=== PATIENT | male | born 1950 | race Caucasian/White ===

== ENCOUNTER 2018-11-14 15:13 | Outpatient (CLI) | payer MEDICARE, OTHER ==
--- NOTE | 2018-11-14 16:11 | MRI ---
MRI Lower Ext Jt Rt WO Con HISTORY: Medial knee pain after squatting. COMPARISON: None. FINDINGS: The anterior as well as posterior cruciate ligaments appear intact. The lateral meniscus is normal in shape and appearance. There is a large centrally displaced flap typ e tear present, it is possible this is a bucket-handle tear although I would favor that this represents a displaced flap tear without a definite connection to the anterior horn although it direc tly abuts the anterior horn. The medial and lateral collateral ligaments and iliotibial band are normal in appearance. There is articular cartilage fissuring of the medial facet of the patella the medial and lateral jaquez llar retinacula and quadriceps and patellar tendons are normal. There is a joint effusion present with a small Meng's cyst. IMPRESSION: 1. Medial meniscus tear with a large centrally displaced flap fragment. This is felt to represent a d isplaced flap tear it could conceivably be a bucket-handle type tear. 2. Articular cartilage fissuring of the medial facet of the patella.
== END 2018-11-14 15:14 | disposition home or self-care (01) ==
LOC: SCSMRI 15:13
PROVIDERS: ATTEND Orthopaedic Surgery
DX: M23.91 Unspecified internal derangement of right knee (principal)

== ENCOUNTER 2018-11-21 06:04 | Day surgery (SDC) | payer MEDICARE, OTHER ==
[2018-11-20 10:13] VITALS: BMI 24.4
[2018-11-21] MEDS ORDERED: Fentanyl 100 MCG/2 ML VIAL ONE ×2 (06:13→06:43)
[2018-11-21 06:42] LABS: #Basophils 0.1 thou/uL (0.0-0.2); #Eosinphils 0.3 thou/uL (0.0-0.7); #Lymphocytes 2.1 thou/uL (1.20-3.40); #Monocytes 0.6 thou/uL (0.11-0.59); #Neutrophils 2.3 thou/uL (1.40-6.50); %Basophils 1.1 % (0.0-1.0); %Eosinophils 6.4 % (0.0-10.0); %Lymphocytes 39.1 % (21.0-51.0); %Monocytes 10.4 % (0.0-10.0); Hemoglobin 13.5 g/dL (14.0-18.0); Mean Corpuscular HGB CONC 34.6 g/dL (32.0-36.0); Mean Corpuscular Hemoglobin 33.8 pg (27.0-31.0); Mean Corpuscular Volume 97.7 fL (78.0-98.0); Mean Platelet Volume 6.4 fL (7.4-10.4); Platelet Count 314 thou/uL (130-400); RBC Distribution Width 11.6 % (11.5-14.5); Red Blood Cell (RBC) Count 3.99 mill/uL (4.70-6.10); White Blood Cell (WBC) Count 5.4 thou/uL (4.8-10.8)
[2018-11-21] MEDS ORDERED: Midazolam HCl 2 mg/2 ml Vial ONE (06:43)
[2018-11-21] MEDS ORDERED: PROPOFOL 20 ML ONE (06:44)
[2018-11-21 07:00] LABS: Anion Gap 19 mmol/L (10-20); BUN (Urea Nitrogen) 11 mg/dL (8.4-25.7); Calc. Creatinine Clearance 83 mL/min (70-130); Calcium 10.4 mg/dL (7.8-10.44); Carbon Dioxide 20 mmol/L (23-31); Chloride 102 mmol/L (98-107); Estimated GFR-MDRD 73; Glucose 152 mg/dL (80-115); Potassium 5.2 mmol/L (3.5-5.1); Sodium 136 mmol/L (136-145)
[2018-11-21] MEDS ORDERED: Promethazine HCl 25 MG/ML VIAL ONE (09:09)
--- NOTE | 2018-11-21 10:19 | OP ---
DATE OF PROCEDURE: 11/21/2018 PREOPERATIVE DIAGNOSIS: Right knee bucket-handle medial meniscus tear. POSTOPERATIVE DIAGNOSIS: Right knee bucket-handle medial meniscus tear. PROCEDURES PERFORMED: Right knee arthroscopy with partial medial meniscectomy. LEAD ATHLETE: None. BLOOD LOSS: Minimal. COMPLICATIONS: None. ANESTHESIA: The patient did have a general anesthetic as well as a local knee block. DISPOSITION: He went to recovery room in stable condition. INDICATIONS: This 67-year-old male comes in after a couple months of increasing pain and inability to fully extend the knee. An MRI scan showed him to have some early arthritic change in the medial compartment as well as a large displaced tear of the medial meniscus. At this time, he opted to have surgery. DESCRIPTION OF PROCEDURE: After all appropriate consent forms were explained and signed, he was taken to the operating room and at this time was given general anesthetic. Once the level of anesthesia was appropriate, tourniquet was placed on the right thigh. Leg was placed in arthroscopic leg hines. The limb was then prepped and draped in standard surgical fashion. Limb was exsanguinated and tourniquet was taken up to 300 mmHg. Inferolateral portal was established. Scope was placed into the knee joint. A needle localization technique was then used to make a medial working portal. Diagnostic arthroscopy commenced in the notch. The displaced medial meniscus was found in the notch. This was replaced back into its appropriate position manually. ACL and PCL were found to be intact. The medial compartment was evaluated. 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 There were no grade 4 lesions noted. Tibial plateau was overall in good condition. The meniscus itself had significant degenerative changes with intrameniscal tearing and striations that were noted in the body portion of the tear. There was also a white discoloration and the meniscus was found to be very hard. Partial meniscectomy was then performed using the biters and a grasper as well as the meniscotome. Once this area had been smoothed out and any viable meniscus left alone, we turned our attention to the lateral compartment. This was probed and found to be intact. The gutters were swept through, no loose bodies were noted. Patellofemoral joint was found to be in good condition. At this time, scope was removed and knee was drained and the portals were closed with simple nylon stitches. Bulky sterile dressing was applied. Tourniquet was let down. Toes pinked up nicely. The patient was awakened and he was taken to recovery room in stable condition. All counts were correct at the end of the case and he did receive preoperative IV antibiotics. Job ID: [id number]
== END 2018-11-21 12:10 | disposition home or self-care (01) ==
LOC: SDC 06:04
PROVIDERS: ATTEND Orthopaedic Surgery
PROC: 0SBC4ZZ Excision of Right Knee Joint, Percutaneous Endoscopic Approach (ICD-10-PCS; principal; 2018-11-21)
DX: S83.211A Bucket-handle tear of medial meniscus, current injury, right knee, initial encounter (principal); I10 Essential (primary) hypertension; E11.9 Type 2 diabetes mellitus without complications; J44.9 Chronic obstructive pulmonary disease, unspecified; E78.00 Pure hypercholesterolemia, unspecified; M19.90 Unspecified osteoarthritis, unspecified site; K21.9 Gastro-esophageal reflux disease without esophagitis; Z79.84 Long term (current) use of oral hypoglycemic drugs; Z79.899 Other long term (current) drug therapy; Z87.891 Personal history of nicotine dependence
CPT/HCPCS: 36415; 80048; 85025; 93005; 93010; J0690; J2250; J2550; J2704; J3010